=== PATIENT | female | born 1995 | race Caucasian/White ===

== ENCOUNTER 2018-02-17 18:55 | Inpatient (IN) | payer MEDICAID ==
[2018-02-17] MEDS ORDERED: LACTATED RINGER'S 1,000 ML IV (21:29)
[2018-02-17] MEDS ORDERED: OXYTOCIN 30 UNITS/LR 500 ML IV ×2 (21:30)
[2018-02-17] MEDS ORDERED: BUTORPHANOL 2 MG INJ IV (21:30)
[2018-02-17] MEDS ORDERED: CARBOPROST 250 MCG INJ IM (21:30)
[2018-02-17] MEDS ORDERED: LIDOCAINE 1% (MPF) 30 ML INJ INJ (21:30)
[2018-02-17] MEDS ORDERED: MISOPROSTOL 200 MCG TAB PR (21:30)
[2018-02-17] MEDS ORDERED: IBUPROFEN 600 MG TAB PO (21:30)
[2018-02-17] MEDS: LACTATED RINGER'S 1,000 ML IV* (22:06)
[2018-02-17 22:31] LABS: ADD MAN DIFF? NO
[2018-02-17 22:36] LABS: WHITE BLOOD COUNT 10.7 10^3/ul (4.8-10.8)
[2018-02-17 22:36] LABS: BASOPHILS % 0.4 % (0.0-2.0); EOSINOPHILS % 0.2 % (0.0-7.0); HEMATOCRIT 36.4 % (37.0-47.0); HEMOGLOBIN 12.5 g/dl (12.0-16.0); LYMPHOCYTES # 1.8 10^3/ul (0.8-2.9); LYMPHOCYTES % 16.6 % (15.0-51.0); MEAN CORPUSCULAR HEMOGLOBIN 32.8 pg (29.0-33.0); MEAN CORPUSCULAR HGB CONC 34.3 g/dl (32.0-37.0); MEAN CORPUSCULAR VOLUME 95.5 fl (82.0-101.0); MEAN PLATELET VOLUME 9.3 fl (7.4-10.4); MONOCYTE # 0.8 10^3/ul (0.3-0.9); MONOCYTES % 7.4 % (0.0-11.0); NEUTROPHILS % 74.5 % (39.0-77.0); PLATELET COUNT 248 10^3/UL (140-415); RED BLOOD COUNT 3.81 10^6/ul (4.20-5.40); RED CELL DISTRIBUTION WIDTH 13.7 % (11.5-14.5)
[2018-02-17 22:57] LABS: INR 0.97
[2018-02-17 22:58] LABS: PARTIAL THROMBOPLASTIN TIME 29.3 Sec (23.0-35.0)
[2018-02-18] MEDS: MISOPROSTOL 50 MCG CAPSULE PO ×2 (00:55→05:09)
[2018-02-18] MEDS: LACTATED RINGER'S 1,000 ML IV* ×4 (05:09→19:42)
[2018-02-18] MEDS ORDERED: TERBUTALINE 0 ML (05:58)
[2018-02-18] MEDS ORDERED: TERBUTALINE 1 MG/ML INJ SC (06:00)
[2018-02-18] MEDS: OXYTOCIN 30 UNITS/LR 500 ML IV ×3 (11:38→22:11)
[2018-02-18] MEDS ORDERED: ONDANSETRON 4 MG INJ IV ×2 (12:30→20:00)
[2018-02-18] MEDS ORDERED: FENTAnyl 2MCG/ML-ROPIV 0.2% 100 ML BAG EPI (12:30)
[2018-02-18] MEDS ORDERED: DIPHENHYDRAMINE 50 MG INJ IV ×2 (12:30→20:00)
[2018-02-18] MEDS ORDERED: NALOXONE (0.4 MG/ML) INJ IV ×2 (12:30)
[2018-02-18] MEDS ORDERED: HYDROmorphONE 0.5 MG/0.5 ML SYG IV ×2 (12:30)
[2018-02-18] MEDS ORDERED: KETOROLAC 30 MG INJ IV (12:30)
[2018-02-18] MEDS ORDERED: LIDOCAINE 0.5% (SDV) 50 ML INJ (13:05)
[2018-02-18 15:06] LABS: RAPID PLASMA REAGIN NONREACTIVE (NR)
[2018-02-18] MEDS: METHYLERGONOVINE 0.2 MG INJ IM (17:53)
[2018-02-18] MEDS: DEXTROSE 5%-LR 1,000 ML IV (19:42)
[2018-02-18] MEDS ORDERED: ACETAMINOPHEN 325 MG TAB PO (20:00)
[2018-02-18] MEDS ORDERED: CARBOPROST 250 MCG INJ IM (20:00)
[2018-02-18] MEDS ORDERED: METHYLERGONOVINE 0.2 MG INJ IM (20:00)
[2018-02-18] MEDS ORDERED: HYDROCODONE/APAP (5/325) TAB PO (20:00)
[2018-02-18] MEDS ORDERED: MISOPROSTOL 200 MCG TAB PR (20:00)
[2018-02-18] MEDS ORDERED: ZOLPIDEM 5 MG TAB PO (20:00)
[2018-02-19] MEDS: WITCH HAZEL/GLYCERIN PAD PR (02:09)
[2018-02-19] MEDS: BENZOCAINE 20% 56 ML SPRAY TOP (02:09)
[2018-02-19] MEDS: LANOLIN 7 GM TUBE TOP (02:09)
[2018-02-19] MEDS: DEXTROSE 5%-LR 1,000 ML IV ×3 (03:42→19:42)
[2018-02-19] MEDS: LACTATED RINGER'S 1,000 ML IV* ×3 (03:42→19:42)
[2018-02-19] MEDS: IBUPROFEN 600 MG TAB PO ×5 (05:14→23:54)
[2018-02-19 07:44] LABS: ADD MAN DIFF? NO
[2018-02-19] MEDS: SENNA/DOCUSATE NA (8.6MG/50MG) TAB PO (07:45)
[2018-02-19] MEDS: MAGNESIUM HYDROXIDE 30ML CUP PO (07:45)
[2018-02-19 07:50] LABS: BASOPHILS % 0.2 % (0.0-2.0); EOSINOPHILS % 0.1 % (0.0-7.0); HEMATOCRIT 32.3 % (37.0-47.0); HEMOGLOBIN 10.9 g/dl (12.0-16.0); LYMPHOCYTES # 1.5 10^3/ul (0.8-2.9); LYMPHOCYTES % 8.9 % (15.0-51.0); MEAN CORPUSCULAR HEMOGLOBIN 32.3 pg (29.0-33.0); MEAN CORPUSCULAR HGB CONC 33.7 g/dl (32.0-37.0); MEAN CORPUSCULAR VOLUME 95.8 fl (82.0-101.0); MEAN PLATELET VOLUME 9.4 fl (7.4-10.4); MONOCYTE # 1.3 10^3/ul (0.3-0.9); MONOCYTES % 7.3 % (0.0-11.0); NEUTROPHIL # 14.3 10^3/ul (1.6-7.5); PLATELET COUNT 210 10^3/UL (140-415); RED BLOOD COUNT 3.37 10^6/ul (4.20-5.40); RED CELL DISTRIBUTION WIDTH 13.7 % (11.5-14.5)
[2018-02-19 07:50] LABS: WHITE BLOOD COUNT 17.3 10^3/ul (4.8-10.8)
[2018-02-19 16:29] LABS: ADD UMIC YES; UR ASCORBIC ACID NEGATIVE (NEGATIVE); UR BACTERIA MANY /HPF (NONE SEEN); UR BILIRUBIN (Dip) NEGATIVE (NEGATIVE); UR BLOOD (Dip) 3+ mg/dL (NEGATIVE); UR CLARITY CLEAR (CLEAR); UR COLOR STRAW (YELLOW); UR GLUCOSE (Dip) NEGATIVE (NEGATIVE); UR KETONES (Dip) NEGATIVE (NEGATIVE); UR LEUKOCYTE ESTERASE (Dip) 2+ Leu/ul (NEGATIVE); UR NITRITE (Dip) NEGATIVE (NEGATIVE); UR RBC 19 /HPF (0-5); UR SPECIFIC GRAVITY (Dip) 1.003 (1.003-1.030); UR SQUAMOUS EPITHELIAL CELL FEW /HPF (FEW); UR TOTAL PROTEIN (Dip) NEGATIVE (NEGATIVE); UR UROBILINOGEN (Dip) NEGATIVE (NEGATIVE); UR WBC 28 /HPF (0-5)
[2018-02-19] MEDS: GENTAMICIN 80 MG/NS (PMX) 50 ML IVPB (17:14)
[2018-02-19] MEDS ORDERED: CLINDAMYCIN 900 MG INJ IV (21:00)
[2018-02-19] MEDS ORDERED: GENTAMICIN 80 MG/NS (PMX) 50 ML IVPB (21:00)
[2018-02-19] MEDS: CLINDAMYCIN 900 MG/D5W (PMX) 50 ML IVPB (21:50)
[2018-02-20] MEDS: GENTAMICIN 80 MG/NS (PMX) 50 ML IVPB ×2 (01:28→10:11)
[2018-02-20] MEDS: LACTATED RINGER'S 1,000 ML IV* ×2 (03:42→11:42)
[2018-02-20] MEDS: DEXTROSE 5%-LR 1,000 ML IV ×2 (03:42→11:42)
[2018-02-20] MEDS: IBUPROFEN 600 MG TAB PO ×2 (05:57→12:38)
[2018-02-20] MEDS: CLINDAMYCIN 900 MG/D5W (PMX) 50 ML IVPB (05:57)
[2018-02-20] MEDS: WITCH HAZEL/GLYCERIN PAD PR (08:54)
[2018-02-20] MEDS: LANOLIN 7 GM TUBE TOP (08:54)
[2018-02-20] MEDS: DIBUCAINE 1% 30 GM OINT PR (08:55)
[2018-02-20] MEDS: BENZOCAINE 20% 56 ML SPRAY TOP (08:55)
[2018-02-20] MEDS: MEASLES,MUMPS,RUBELLA VACCINE INJ SC* (09:00)
[2018-02-20 10:09] LABS: ADD MAN DIFF? NO
[2018-02-20 10:14] LABS: WHITE BLOOD COUNT 11.8 10^3/ul (4.8-10.8)
[2018-02-20 10:14] LABS: BASOPHIL # 0.1 10^3/ul (0.0-0.1); BASOPHILS % 0.5 % (0.0-2.0); EOSINOPHILS # 0.1 10^3/ul (0.0-0.5); EOSINOPHILS % 0.8 % (0.0-7.0); HEMATOCRIT 34.9 % (37.0-47.0); HEMOGLOBIN 11.7 g/dl (12.0-16.0); LYMPHOCYTES # 2.3 10^3/ul (0.8-2.9); LYMPHOCYTES % 19.3 % (15.0-51.0); MEAN CORPUSCULAR HEMOGLOBIN 32.9 pg (29.0-33.0); MEAN CORPUSCULAR HGB CONC 33.5 g/dl (32.0-37.0); MEAN PLATELET VOLUME 9.5 fl (7.4-10.4); MONOCYTES % 8.2 % (0.0-11.0); NEUTROPHIL # 8.3 10^3/ul (1.6-7.5); NEUTROPHILS % 70.4 % (39.0-77.0); PLATELET COUNT 252 10^3/UL (140-415); RED BLOOD COUNT 3.56 10^6/ul (4.20-5.40); RED CELL DISTRIBUTION WIDTH 13.7 % (11.5-14.5)
[2018-02-20] MEDS: DIPHTH/TET/ACEL PERTUSS (ADULT) 0.5 ML VIAL IM* (10:15)
== END 2018-02-20 15:30 | disposition home or self-care (01) | DRG 775 ==
LOC: L-D 18:55 → PP1 02-18 20:28 → L-D 20:44
PROVIDERS: Obstetrics & Gynecology
PROC: 10E0XZZ Delivery of Products of Conception, External Approach (ICD-10-PCS; principal; 2018-02-18)
PROC: 0W8NXZZ Division of Female Perineum, External Approach (ICD-10-PCS; 2018-02-18)
DX: O75.89 Other specified complications of labor and delivery (principal); O35.8XX0 Maternal care for other (suspected) fetal abnormality and damage, not applicable or unspecified; Z37.0 Single live birth; Z3A.37 37 weeks gestation of pregnancy; Z23 Encounter for immunization
CPT/HCPCS: 62319; 76818; 81001; 85025; 85610; 85730; 86592; 86850; 86900; 86901; 87086; 99464